=== PATIENT | female | born 1970 | race Caucasian/White ===

== ENCOUNTER 2021-08-02 17:13 | Emergency (ER) | payer MEDICAID, OTHER ==
[~2021-08-02] VITALS: Ht 165.1 cm; Wt 70.0 kg
[2021-08-02 17:45] VITALS: BP 164/89
[2021-08-02] MEDS ORDERED: DIPHENHYDRAMINE 50MG CAPSULE PO ONE (19:15)
[2021-08-02] MEDS ORDERED: FAMOTIDINE 20MG TABLET PO ONE (19:15)
[2021-08-02] MEDS ORDERED: P50 MT (20:36)
[2021-08-02] MEDS ORDERED: FAMO40TA70 MT (20:36)
[2021-08-02] MEDS ORDERED: DIPH25CA83 MT (20:36)
== END 2021-08-02 21:26 | disposition home or self-care (01) ==
LOC: ER 17:13
DX: T78.40XA Allergy, unspecified, initial encounter (principal); Z88.1 Allergy status to other antibiotic agents; Z98.890 Other specified postprocedural states; X58.XXXA Exposure to other specified factors, initial encounter
CPT/HCPCS: 99283; Q0163